=== PATIENT | male | born 1955 | race Caucasian/White ===

== ENCOUNTER 2024-06-12 16:06 | Observation (INO) ==
[2024-06-12 19:11] LABS: BASOPHILS % (AUTO) 0.5 % (0.2-1.0); EOSINOPHILS % (AUTO) 0.2 % (0.9-2.9); HEMATOCRIT 41.9 % (42.0-54.0); HEMOGLOBIN 14.6 g/dL (13.5-18.0); LYMPHOCYTES # (AUTO) 1.1 X10^3/uL (1.3-2.9); LYMPHOCYTES % (AUTO) 12.7 % (21.0-51.0); MEAN CORPUSCULAR HEMOGLOBIN 32.5 pg (27.0-34.0); MEAN CORPUSCULAR HGB CONC 34.9 g/dL (33.0-35.0); MEAN CORPUSCULAR VOLUME 93.3 fL (80.0-100.0); MEAN PLATELET VOLUME 9.3 fL (7.4-11.0); MONOCYTES # (AUTO) 0.8 x10^3/uL (0.3-0.8); NEUTROPHILS # (AUTO) 6.4 x10^3/uL (2.2-4.8); NEUTROPHILS % (AUTO) 76.6 % (42.0-75.0); PLATELET COUNT 174 X10^3/uL (150.0-450.0); RED BLOOD COUNT 4.49 X10^6/uL (4.7-6.0); WHITE BLOOD COUNT 8.3 X10^3/uL (3.6-10.0)
[2024-06-12 19:14] LABS: BLOOD UREA NITROGEN 10 mg/dL (7-18); CALCIUM 9.3 mg/dL (8.5-10.1); CARBON DIOXIDE 26.5 mmol/L (21-32); CHLORIDE 101 mmol/L (98-107); CREATININE 1.09 mg/dL (0.70-1.30); GLUCOSE 99 mg/dL (65-99); POTASSIUM 4.4 mmol/L (3.5-5.1); SODIUM 139 mmol/L (136-145); eGFR NON BLACK RACES > 60 (>60)
[2024-06-12] MEDS: LR 1,000 ML IV 1,000 ML IV SCH (19:40)
[2024-06-12] MEDS: SINGULAIR TAB 10 MG PO SCH (21:06)
[2024-06-12] MEDS: CRESTOR TAB 10 MG PO SCH (21:07)
[2024-06-12] MEDS: AMBIEN PO PRN (21:07)
[2024-06-12] MEDS: DILAUDID INJ IVP PRN (21:09)
--- NOTE | 2024-06-12 23:11 | CT ---
EXAM: CTA AORTA WITH RUNOFF HISTORY: acutely ischemic right foot; COMPARISON: January 19, 2024 TECHNIQUE: Axial CT images of the abdomen, pelvis and lower extremities were obtained prior to and after the ad ministration of 150 mL Omnipaque 350 IV contrast during the arterial phase. Images were reformatted w ith a 3D angiographic technique for further evaluation. Radiation dose: 918.52 mGy-cm total DLP FINDINGS: Aorta: Atherosclerotic changes with fusiform infrarenal abdominal aortic ectasia measuring up to 2.6 x 2.4 cm. No clinically significant stenosis or occlusion. Mesenteric arteries/Celiac trunk: No clinically significant stenosis, occlusion or aneurysm. Renal arteries: Atherosclerotic changes. No clinically significant stenosis, occlusion or aneurysm. Right iliac arteries: Atherosclerotic changes. No clinically significant stenosis, occlusion or aneur ysm. Left iliac arteries: Atherosclerotic changes. No clinically significant stenosis, occlusion or aneury sm. Right femoral arteries/popliteal artery: Atherosclerotic changes. Stent in place in the right superfi cial femoral artery with age indeterminate occlusion throughout the entire course of the stent. Prof unda femoral artery is widely patent. Left femoral arteries/popliteal artery: Atherosclerotic changes. No clinically significant stenosis, occlusion or aneurysm. Stent in the mid left superficial femoral artery. Right infrapopliteal arteries: Atherosclerotic changes. Reconstitution of flow in of the inferior rig ht popliteal artery. Scant flow in the right posterior tibial artery. Occlusion in the mid right an terior tibial artery. Left infrapopliteal arteries: Atherosclerotic changes. No occlusion or aneurysm. 3 vessel runoff. Lung bases are clear. No acute osseous abnormality. Mild multilevel degenerative disc and joint changes. Stomach and proximal small bowel appear normal. Solid visceral organs of the upper abdomen are unremarkable. Gallbladder appears normal. No biliary dilatation. Homogeneous enhancement of the kidneys without hydronephrosis or hydroureter. No urinary calculus identified. Urinary bladder is unremarkable. Colonic diverticulosis without diverticulitis. Otherwise, unremarkable appearance of the small and large bowel. No evidence of acute appendicitis. Reproductive structures are unremarkable. No pneumoperitoneum. No free intra-abdominal fluid. No adenopathy. IMPRESSION: Stent in place in the right superficial femoral artery with age indeterminate occlusion throughout th e entire course of the stent. Profunda femoral artery is widely patent.Reconstitution flow in of the inferior right popliteal artery. Scant flow in the right posterior tibial artery. Occlusion in the mid right anterior tibial artery. Right peroneal artery is widely patent. Fusiform ectasia of the infrarenal abdominal aorta measuring up to 2.6 x 2.4 cm in diameter. Colonic diverticulosis without diverticulitis. THIS IS AN ELECTRONICALLY VERIFIED FINAL REPORT 06/12/2024 11:07 PM - Electronically signed by Renny Jenkins MD
[2024-06-13] MEDS: LOVENOX INJ 60 MG SYR SC SCH (01:25)
[2024-06-13] MEDS ORDERED: HIBICLENS WASH ONE (05:27)
[2024-06-13] MEDS: NOZIN NASAL SANITIZER TP ONE (06:30)
[2024-06-13] MEDS: HIBICLENS WASH EXT ONE (06:30)
[2024-06-13] MEDS ORDERED: COZAAR PO SCH (09:00)
[2024-06-13] MEDS: ASPIRIN EC 81 MG PO SCH (13:51)
[2024-06-13] MEDS: PROTONIX TAB 40 MG PO SCH (13:51)
--- NOTE | 2024-06-13 17:23 | DR.CONSULT ---
CONSULT Consultation for Day of: Date: 06/13/24 Chief Complaint Chief Complaint: Right Lower Extremity Blockage Allergies Allergies Allergy/AdvReac Type Severity Reaction Status Date / Time No Known Allergies Allergy Verified 08/31/22 08:51 History of Present Illness History of Present Illness: Patient previously underwent ATFL and CFL repair by Dr. Groves. Had excruciating pain in the right lower extremity. Had early follow- up had coldness to the right leg. Patient referred to [facility] for critical limb ischemia. Sd admitted. CTA showed blockage. Preparing for OR today. Social History Does patient currently use any type of tobacco product: No Type of Tobacco Use: Cigarettes Does any household member use tobacco: No Alcohol Use: None Drug Use: None Medications Home Medications: No Known Allergies Allergy (Verified 08/31/22 08:51) CONTINUE taking the following medications hydrocodone 5 mg-acetaminophen 325 mg tablet 1 tab PO Q4H PRN 06/12/24 [History] ondansetron HCl 8 mg tablet 8 mg PO Q8H PRN 06/12/24 [History] rivaroxaban 2.5 mg tablet (Xarelto) 2.5 mg PO QDAY 06/12/24 [History] Review of Systems Musculoskeletal: Leg Pain and Foot Pain Physical Exam Vital Signs: Vital Signs Temperature 97.7 F Temperature 97.8 F Pulse Rate [Right] 82 Pulse Rate [Right] 71 Respiratory Rate 18 Respiratory Rate 18 Respiratory Rate 18 Respiratory Rate 18 Blood Pressure [Right Arm] 172/79 Blood Pressure [Right Arm] 139/65 O2 Sat by Pulse Oximetry 99 O2 Sat by Pulse Oximetry 99 Oriented: Normal, Time, Person and Place Skin: Other (Cold to to the touch of the right foot. CFT is intact to digits but delayed. Purple color change appear to digits. Sutures are in place to right foot incisions from previous surgery. ) Musculoskeletal: Tender (Tender along entire right foot and ankle. ) Plan (1) Ischemia of right lower extremity: Status: Acute Plan: - Would like patient to be NWB to RLE. - Sd to perform surgery today. - Will follow-up with patient tomorrow. - Keep surgical incisions clean.
[2024-06-14] MEDS: OMNIPAQUE 350 mg/mL 100 mL BTL 100 ML ONE (07:50)
[2024-06-14] MEDS: NS 100 ML IV 100 ML ONE (07:50)
[2024-06-14] MEDS: OMNIPAQUE 350 mg/mL 50 mL BTL 50 ML ONE (07:51)
[2024-06-14] MEDS: COZAAR PO SCH (09:05)
--- NOTE | 2024-06-14 11:15 | NOTE.SOAP ---
Soap Note Note for Day of Date of Exam: 06/13/24 Subjective Data Subjective Data: See H& P .Patient with ischemia right leg and CTA documenting occluded right SFA stent . Unfortunately the OR day went long and he was cancelled . Am in office Wed. Plan arterial intercvention right leg Objective Data Temperature: 98.2 F Pulse Rate: 86 Respiratory Rate: 20 Blood Pressure: 131/60 O2 Sat by Pulse Oximetry: 95 Objective Data: cool right leg, still able to move toes , no doppler signal right ankle Assessment Assessment: critical ischemia right leg , Plan Plan: Schedule right leg arterial intervention first thing in the AM.
--- NOTE | 2024-06-14 12:41 | DR.H&P ---
H&P History & Physical for Day of: H&P Date: 06/13/24 Chief Complaint Chief Complaint: rest pain right leg History of Present Illness History of Present Illness: 68 year old male with significant bilateral lower extremity arterial problems who has had bilateral lower extremity arterial intervention. Most recently has had doppler study in March of this year showing normal flow. however he presented with follow up in my office on 06/12 after a surgical procedure right foot by Dr. Groevs of the right foot and now has a cool right foot. P atient admitted for evaluation of this. I can palpate no distal pulses in the right foot as I could before. Also history of carotid art4ry disease in the past treated with CEA He is a former smoker. Past Medical History Past Medical History: Dyslipidemia, GERD and Hypertension Additional Medical History: history of left carotid artery stenosis Past Surgical History Surgical History: Other (left CEA, colonscopy) Family History Family Medical History: Cancer and Coronary Artery Disease Social History Does patient currently use any type of tobacco product: No Type of Tobacco Use: Cigarettes How many years tobacco product used: 50 Does any household member use tobacco: No Alcohol Use: None Drug Use: None Medications Home Medications: Home Medications Medication Instructions Recorded Confirmed Type losartan 25 mg tablet 25 mg PO QDAY 08/31/22 06/12/24 History montelukast 10 mg tablet 10 mg PO QDAY 08/31/22 06/12/24 History pantoprazole 40 mg tablet,delayed 40 mg PO QDAY 08/31/22 06/12/24 History release rosuvastatin 10 mg tablet 10 mg PO QDAY 08/31/22 06/12/24 History hydrocodone 5 mg-acetaminophen 325 1 tab PO Q4H PRN 06/12/24 06/12/24 History mg tablet ondansetron HCl 8 mg tablet 8 mg PO Q8H PRN 06/12/24 06/12/24 History rivaroxaban 2.5 mg tablet (Xarelto) 2.5 mg PO QDAY 06/12/24 06/12/24 History Allergies Allergies Allergy/AdvReac Type Severity Reaction Status Date / Time No Known Allergies Allergy Verified 08/31/22 08:51 Labs 06/12/24 19:00 06/12/24 19:00 Labs: Laboratory WBC 8.3 X10^3/uL (3.6-10.0) 06/12/24 19:00 RBC 4.49 X10^6/uL (4.7-6.0) L 06/12/24 19:00 Hgb 14.6 g/dL (13.5-18.0) 06/12/24 19:00 Hct 41.9 % (42.0-54.0) L 06/12/24 19:00 MCV 93.3 fL (80.0-100.0) 06/12/24 19:00 MCH 32.5 pg (27.0-34.0) 06/12/24 19:00 MCHC 34.9 g/dL (33.0-35.0) 06/12/24 19:00 RDW 13.0 % (11.6-16.5) 06/12/24 19:00 Plt Count 174 X10^3/uL (150.0-450.0) 06/12/24 19:00 MPV 9.3 fL (7.4-11.0) 06/12/24 19:00 Neut % (Auto) 76.6 % (42.0-75.0) H 06/12/24 19:00 Lymph % (Auto) 12.7 % (21.0-51.0) L 06/12/24 19:00 [place] % (Auto) 10.0 % (0.0-13.0) 06/12/24 19:00 Eos % (Auto) 0.2 % (0.9-2.9) L 06/12/24 19:00 Baso % (Auto) 0.5 % (0.2-1.0) 06/12/24 19:00 Neut # (Auto) 6.4 x10^3/uL (2.2-4.8) H 06/12/24 19:00 Lymph # (Auto) 1.1 X10^3/uL (1.3-2.9) L 06/12/24 19:00 [place] # (Auto) 0.8 x10^3/uL (0.3-0.8) 06/12/24 19:00 Eos # (Auto) 0.0 x10^3/uL (0.0-0.2) 06/12/24 19:00 Baso # (Auto) 0.0 X10^3/uL (0.0-0.1) 06/12/24 19:00 Absolute Nucleated RBC 0.1 /100WBC 06/12/24 19:00 Sodium 139 mmol/L (136-145) 06/12/24 19:00 Corrected Sodium TNP 06/12/24 19:00 Potassium 4.4 mmol/L (3.5-5.1) 06/12/24 19:00 Chloride 101 mmol/L (98-107) 06/12/24 19:00 Carbon Dioxide 26.5 mmol/L (21-32) 06/12/24 19:00 BUN 10 mg/dL (7-18) 06/12/24 19:00 Creatinine 1.09 mg/dL (0.70-1.30) 06/12/24 19:00 Est GFR (MDRD) Af Amer > 60 (>60) 06/12/24 19:00 Est GFR (MDRD) Non-Af > 60 (>60) 06/12/24 19:00 Glucose 99 mg/dL (65-99) 06/12/24 19:00 Calcium 9.3 mg/dL (8.5-10.1) 06/12/24 19:00 Review of Systems Constitutional: See HPI Eyes: No Symptoms Reported ENT: No Symptoms Reported Respiratory: No Symptoms Reported Cardiovascular: See HPI Gastrointestinal: No Symptoms Reported Genitourinary: No Symptoms Reported Musculoskeletal: No Symptoms Reported, Leg Pain and Foot Pain Skin: See HPI (surgery by Dr. Groves right foot ) Neurological: No Symptoms Reported Physical Exam Vital Signs: Vital Signs Temperature 98.2 F Temperature 97.7 F Pulse Rate [Right] 86 Pulse Rate [Right] 82 Respiratory Rate 18 Respiratory Rate 20 Respiratory Rate 18 Blood Pressure [Left Arm] 131/60 Blood Pressure [Right Arm] 172/79 O2 Sat by Pulse Oximetry 95 O2 Sat by Pulse Oximetry 99 Oriented: Normal, Time, Person and Place Eyes: Normal Ear: Normal Nose: Normal Throat: Normal Respiratory: Clear Throughout Cardiovascular: Normal and Other (Pulses both femoral arteries palpable , Absent dopplere signals right foot, right foot cool to touch, left fott with good doppler signals left ankle ) : Normal Auscultation: Bowel Sounds: Normal Palpation: Normal Tenderness: Normal Skin: Normal Musculoskeletal: Normal Psychiatric: Normal Mood Description: Anxious (in pain) Affect: Normal Speech Pattern: Clear and Appropriate Assessment/Plan (1) Ischemia of right lower extremity: Status: Acute Plan: admit, SQ Lovenox , CTA of aorta with runoff. (2) Essential (primary) hypertension: Status: Acute Plan: home meds (3) Gastro-esophageal reflux disease without esophagitis: Status: Acute Plan: ome meds
--- NOTE | 2024-06-14 22:52 | NOTE.SOAP ---
Soap Note Note for Day of Date of Exam: 06/14/24 Subjective Data Subjective Data: see previous notes , For aortogram , artetriogram right leg with possible atherectomy, possible angioiplasty of occluded right SFA stent . Main runoff is the right peroneal artery Objective Data Temperature: 98.3 F Pulse Rate: 72 Respiratory Rate: 20 Blood Pressure: 138/66 O2 Sat by Pulse Oximetry: 97 Objective Data: Cool right leg with no palapble pulses distally Assessment Assessment: Critical ischemia right leg , occluded right SFA stent. Plan arterial intervention right leg tomorrow. Plan Plan: as above
[2024-06-15] MEDS: LR 1,000 ML IV 1,000 ML IV ONE (07:20)
[2024-06-15] MEDS: NS 100 ML IV 100 ML ONE (07:44)
[2024-06-15] MEDS: ANCEF VIAL 1 GRAM ONE (07:44)
[2024-06-15] MEDS: XYLOCAINE 2 % (PLAIN) ONE (07:51)
[2024-06-15] MEDS: KETAMINE HCL ONE (07:51)
[2024-06-15] MEDS: PEPCID 20 MG VIAL ONE (07:51)
[2024-06-15] MEDS: DIPRIVAN VIAL 20 ML ONE ×2 (07:51→09:14)
[2024-06-15] MEDS: FENTANYL VIAL INJ 100 mcg ONE (07:51)
[2024-06-15] MEDS: ZOFRAN INJ 4 MG VIAL ONE (07:51)
[2024-06-15] MEDS: PRECEDEX INJ VIAL ONE (07:51)
[2024-06-15] MEDS: VERSED ONE (07:51)
[2024-06-15] MEDS: REGLAN INJ 10 MG VIAL ONE (07:51)
[2024-06-15] MEDS: OFIRMEV IV 1000 MG VIAL 1,000 MG/100 ML VIAL IV ONE (08:04)
[2024-06-15] MEDS: VISIPAQUE 50 ML ONE (08:14)
[2024-06-15] MEDS: MARCAINE 0.5% ONE (08:14)
[2024-06-15] MEDS: VISIPAQUE 100 ML ONE (08:14)
[2024-06-15] MEDS: HEPARIN SODIUM IN D5W 75,000 UNITS/1,500 ML BAG ONE (08:14)
[2024-06-15] MEDS: HEPARIN SODIUM INJ 5000 UNITS ONE (08:16)
[2024-06-15] MEDS: HEPARIN SODIUM IN D5W 25,000 UNITS/500 ML BAG ONE (08:42)
[2024-06-15] MEDS: NITROGLYCERIN IV PREMIX 50 MG 50 MG/250 ML BAG ONE (09:35)
--- NOTE | 2024-06-15 09:42 | OR.IMMED ---
IMMEDIATE POST-OP NOTE Immediate Post-Op Note Date of surgery/procedure: 06/15/24 Pre-Op Diagnosis: criticalm ischemia right leg, occluded right SFA stents Post-Op Diagnosis: same, see findings Procedure: diagnostic aortogram, arteriogram right leg, Angiojet thrombectomy of the entire right superficial femoral artery stents and balloon dilatation of the stents , angioplasty of the right anterior tibial artery, drug coated with balloon angioplasty of the popliteal artery below the knee. Description of Procedure: dictated Surgeon/[employer] [id number]: Sd Findings: completely occluded right superficial femoral artery stents, stenosis of [place] popliteal arteries below the knee, diffuse disease of the distal right anterior tibial artery, patent peroneal artery, filling of the posterior tibial artery at the end of the case through the peroneal artery Estimated Blood Loss: 100cc Complications: none Progress Notes: to floor, begin diet , begin Xarelto and aspirin, home later today
[2024-06-15] MEDS: XARELTO PO SCH (10:04)
[2024-06-15 16:04] VITALS: BP 165/84; PULSE 78; TEMP 97.7; O2SAT 96
[2024-06-15 16:44] VITALS: RESP 16
[2024-06-15] MEDS ORDERED: XARELTO PO SCH (21:00)
--- NOTE | 2024-06-19 11:29 | W.DIS.FURT ---
Summary of Discharge Discharge Summary of Date Date of Exam: 06/15/24 Admission Date Date of Admission: 06/12/24 Admission Diagnosis Hospital Course: 68 year old male with history of bilateral significant peripheral vascular disease who has had bilateral lower extremity arterial interventions in the past. He presented for a routine follow-up after having a procedure by podiatry in the office on the day of admission June 12 and had a cool painful right leg. He was admitted and placed on therapeutic subcutaneous Lovenox . CT angiogram was consistent with occluded stents in the right superficial femoral artery. He was hydrated and maintained on the therapeutic Lovenox with plans to take him to the operating Suite on 06/13 however it got too late in the day and we could not get it done that day therefore, it was moved to today, June 15. Today underwent Angiojey thrombectomy of the occluded right shA stents , angioplasty of the right anterior tibial artery with runoff being the anterior tibial and peroneal arteries with reconstitution of the posterior tibial through the peronel artery as well as a drug balloon angioplasty with atherectomy of the right tibial peroneal trunk. He has done well with excellent warm right foot and excellent bi phasic signal in the anterior tibial artery at the ankle. He will be discharged home on his usual medications plus Percocet, 5 milligram tablets 1, every 6 hours per in pain, he has a follow up to see me on June 29. Vital Signs: Vital Signs (72 hours) 06/14/24 22:51 06/14/24 11:15 06/12/24 18:10 Temperature 98.3 F 98.2 F Pulse Rate 72 86 Pulse Rate [Brachial] Pulse Rate [Left] Pulse Rate [Right] Respiratory Rate 20 20 Blood Pressure 138/66 131/60 Blood Pressure [Left Arm] Blood Pressure [Right Arm] O2 Sat by Pulse Oximetry 97 95 Oxygen Delivery Method Room Air 06/12/24 18:12 06/12/24 17:53 06/12/24 19:00 Temperature 97.9 F Pulse Rate Pulse Rate [Brachial] Pulse Rate [Left] Pulse Rate [Right] 74 Respiratory Rate 18 Blood Pressure Blood Pressure [Left Arm] Blood Pressure [Right Arm] 162/70 O2 Sat by Pulse Oximetry 100 Oxygen Delivery Method Room Air Room Air Room Air 06/12/24 21:09 06/12/24 21:39 06/12/24 20:00 Temperature 98.4 F Pulse Rate Pulse Rate [Brachial] Pulse Rate [Left] Pulse Rate [Right] 90 Respiratory Rate 22 18 19 Blood Pressure Blood Pressure [Left Arm] Blood Pressure [Right Arm] 181/79 O2 Sat by Pulse Oximetry 97 Oxygen Delivery Method Room Air 06/13/24 00:00 06/13/24 04:00 06/13/24 07:32 Temperature 98.3 F 98.0 F Pulse Rate Pulse Rate [Brachial] Pulse Rate [Left] Pulse Rate [Right] 85 71 Respiratory Rate 16 20 20 Blood Pressure Blood Pressure [Left Arm] Blood Pressure [Right Arm] 161/91 186/77 O2 Sat by Pulse Oximetry 95 98 Oxygen Delivery Method Room Air Room Air 06/13/24 08:00 06/13/24 08:02 06/13/24 07:00 Temperature 97.5 F L Pulse Rate Pulse Rate [Brachial] Pulse Rate [Left] Pulse Rate [Right] 78 Respiratory Rate 20 20 Blood Pressure Blood Pressure [Left Arm] Blood Pressure [Right Arm] 172/81 O2 Sat by Pulse Oximetry 97 Oxygen Delivery Method Room Air Room Air 06/13/24 12:00 06/13/24 12:35 06/13/24 13:05 Temperature 97.8 F Pulse Rate Pulse Rate [Brachial] Pulse Rate [Left] Pulse Rate [Right] 71 Respiratory Rate 18 18 18 Blood Pressure Blood Pressure [Left Arm] Blood Pressure [Right Arm] 139/65 O2 Sat by Pulse Oximetry 99 Oxygen Delivery Method Room Air 06/13/24 16:00 06/13/24 20:00 06/13/24 19:00 Temperature 97.7 F 98.2 F Pulse Rate Pulse Rate [Brachial] Pulse Rate [Left] Pulse Rate [Right] 82 86 Respiratory Rate 18 20 Blood Pressure Blood Pressure [Left Arm] 131/60 Blood Pressure [Right Arm] 172/79 O2 Sat by Pulse Oximetry 99 95 Oxygen Delivery Method Room Air Room Air Room Air 06/13/24 20:05 06/13/24 22:15 06/14/24 00:00 Temperature 98.5 F Pulse Rate Pulse Rate [Brachial] Pulse Rate [Left] Pulse Rate [Right] 79 Respiratory Rate 18 20 18 Blood Pressure Blood Pressure [Left Arm] 171/75 Blood Pressure [Right Arm] O2 Sat by Pulse Oximetry 95 Oxygen Delivery Method Room Air 06/14/24 04:00 06/13/24 22:45 06/13/24 20:35 Temperature 98.4 F Pulse Rate Pulse Rate [Brachial] Pulse Rate [Left] 68 Pulse Rate [Right] Respiratory Rate 21 18 22 Blood Pressure Blood Pressure [Left Arm] 173/79 Blood Pressure [Right Arm] O2 Sat by Pulse Oximetry 96 Oxygen Delivery Method Room Air 06/14/24 04:57 06/14/24 09:06 06/14/24 10:19 Temperature Pulse Rate Pulse Rate [Brachial] Pulse Rate [Left] Pulse Rate [Right] Respiratory Rate 18 18 Blood Pressure Blood Pressure [Left Arm] Blood Pressure [Right Arm] O2 Sat by Pulse Oximetry Oxygen Delivery Method Room Air 06/14/24 08:00 06/14/24 09:36 06/14/24 12:18 Temperature 97.5 F L Pulse Rate Pulse Rate [Brachial] Pulse Rate [Left] 78 Pulse Rate [Right] Respiratory Rate 19 20 20 Blood Pressure Blood Pressure [Left Arm] 132/60 Blood Pressure [Right Arm] O2 Sat by Pulse Oximetry 96 Oxygen Delivery Method Room Air 06/14/24 14:40 06/14/24 17:48 06/14/24 12:00 Temperature 97.7 F Pulse Rate Pulse Rate [Brachial] 80 Pulse Rate [Left] Pulse Rate [Right] Respiratory Rate 22 18 18 Blood Pressure Blood Pressure [Left Arm] 137/69 Blood Pressure [Right Arm] O2 Sat by Pulse Oximetry 97 Oxygen Delivery Method Room Air 06/14/24 12:48 06/14/24 15:10 06/14/24 16:00 Temperature 98.3 F Pulse Rate Pulse Rate [Brachial] 72 Pulse Rate [Left] Pulse Rate [Right] Respiratory Rate 22 18 20 Blood Pressure Blood Pressure [Left Arm] 138/66 Blood Pressure [Right Arm] O2 Sat by Pulse Oximetry 97 Oxygen Delivery Method Room Air 06/14/24 19:00 06/14/24 20:59 06/14/24 23:04 Temperature Pulse Rate Pulse Rate [Brachial] Pulse Rate [Left] Pulse Rate [Right] Respiratory Rate 18 20 Blood Pressure Blood Pressure [Left Arm] Blood Pressure [Right Arm] O2 Sat by Pulse Oximetry Oxygen Delivery Method Room Air 06/15/24 03:45 06/14/24 21:29 06/14/24 20:00 Temperature 99.4 F Pulse Rate Pulse Rate [Brachial] 75 Pulse Rate [Left] Pulse Rate [Right] Respiratory Rate 18 18 20 Blood Pressure Blood Pressure [Left Arm] 158/72 Blood Pressure [Right Arm] O2 Sat by Pulse Oximetry 96 Oxygen Delivery Method Room Air 06/14/24 23:34 06/15/24 00:00 06/15/24 04:15 Temperature 97.9 F Pulse Rate Pulse Rate [Brachial] 71 Pulse Rate [Left] Pulse Rate [Right] Respiratory Rate 20 20 18 Blood Pressure Blood Pressure [Left Arm] 156/62 Blood Pressure [Right Arm] O2 Sat by Pulse Oximetry 98 Oxygen Delivery Method Room Air 06/15/24 07:15 06/15/24 07:00 06/15/24 10:49 Temperature 99.4 F Pulse Rate 77 Pulse Rate [Brachial] Pulse Rate [Left] Pulse Rate [Right] Respiratory Rate 19 18 Blood Pressure 192/92 Blood Pressure [Left Arm] Blood Pressure [Right Arm] O2 Sat by Pulse Oximetry 95 Oxygen Delivery Method Room Air 06/15/24 11:19 06/15/24 14:26 06/15/24 16:44 Temperature Pulse Rate Pulse Rate [Brachial] Pulse Rate [Left] Pulse Rate [Right] Respiratory Rate 20 20 16 Blood Pressure Blood Pressure [Left Arm] Blood Pressure [Right Arm] O2 Sat by Pulse Oximetry Oxygen Delivery Method 06/15/24 14:56 06/15/24 09:45 06/15/24 10:00 Temperature 98.0 F Pulse Rate Pulse Rate [Brachial] 51 L 50 L Pulse Rate [Left] Pulse Rate [Right] Respiratory Rate 18 18 16 Blood Pressure Blood Pressure [Left Arm] 103/57 137/67 Blood Pressure [Right Arm] O2 Sat by Pulse Oximetry 97 98 Oxygen Delivery Method Room Air Room Air 06/15/24 10:15 06/15/24 10:30 06/15/24 10:45 Temperature 98.0 F 97.9 F Pulse Rate Pulse Rate [Brachial] 53 L 56 L 59 L Pulse Rate [Left] Pulse Rate [Right] Respiratory Rate 16 16 18 Blood Pressure Blood Pressure [Left Arm] 161/77 159/82 174/81 Blood Pressure [Right Arm] O2 Sat by Pulse Oximetry 100 100 100 Oxygen Delivery Method Room Air Room Air Room Air 06/15/24 11:45 06/15/24 12:45 06/15/24 13:45 Temperature 97.8 F 97.7 F 97.8 F Pulse Rate Pulse Rate [Brachial] 69 75 57 L Pulse Rate [Left] Pulse Rate [Right] Respiratory Rate 18 18 18 Blood Pressure Blood Pressure [Left Arm] 170/77 170/71 182/82 Blood Pressure [Right Arm] O2 Sat by Pulse Oximetry 97 95 94 L Oxygen Delivery Method Room Air Room Air Room Air 06/15/24 14:45 Temperature 97.7 F Pulse Rate Pulse Rate [Brachial] 78 Pulse Rate [Left] Pulse Rate [Right] Respiratory Rate 18 Blood Pressure Blood Pressure [Left Arm] 165/84 Blood Pressure [Right Arm] O2 Sat by Pulse Oximetry 96 Oxygen Delivery Method Room Air Labs: Laboratory Last Values WBC 8.3 X10^3/uL (3.6-10.0) 06/12/24 19:00 RBC 4.49 X10^6/uL (4.7-6.0) L 06/12/24 19:00 Hgb 14.6 g/dL (13.5-18.0) 06/12/24 19:00 Hct 41.9 % (42.0-54.0) L 06/12/24 19:00 MCV 93.3 fL (80.0-100.0) 06/12/24 19:00 MCH 32.5 pg (27.0-34.0) 06/12/24 19:00 MCHC 34.9 g/dL (33.0-35.0) 06/12/24 19:00 RDW 13.0 % (11.6-16.5) 06/12/24 19:00 Plt Count 174 X10^3/uL (150.0-450.0) 06/12/24 19:00 MPV 9.3 fL (7.4-11.0) 06/12/24 19:00 Neut % (Auto) 76.6 % (42.0-75.0) H 06/12/24 19:00 Lymph % (Auto) 12.7 % (21.0-51.0) L 06/12/24 19:00 [place] % (Auto) 10.0 % (0.0-13.0) 06/12/24 19:00 Eos % (Auto) 0.2 % (0.9-2.9) L 06/12/24 19:00 Baso % (Auto) 0.5 % (0.2-1.0) 06/12/24 19:00 Neut # (Auto) 6.4 x10^3/uL (2.2-4.8) H 06/12/24 19:00 Lymph # (Auto) 1.1 X10^3/uL (1.3-2.9) L 06/12/24 19:00 [place] # (Auto) 0.8 x10^3/uL (0.3-0.8) 06/12/24 19:00 Eos # (Auto) 0.0 x10^3/uL (0.0-0.2) 06/12/24 19:00 Baso # (Auto) 0.0 X10^3/uL (0.0-0.1) 06/12/24 19:00 Absolute Nucleated RBC 0.1 /100WBC 06/12/24 19:00 Sodium 139 mmol/L (136-145) 06/12/24 19:00 Corrected Sodium TNP 06/12/24 19:00 Potassium 4.4 mmol/L (3.5-5.1) 06/12/24 19:00 Chloride 101 mmol/L (98-107) 06/12/24 19:00 Carbon Dioxide 26.5 mmol/L (21-32) 06/12/24 19:00 BUN 10 mg/dL (7-18) 06/12/24 19:00 Creatinine 1.09 mg/dL (0.70-1.30) 06/12/24 19:00 Est GFR (MDRD) Af Amer > 60 (>60) 06/12/24 19:00 Est GFR (MDRD) Non-Af > 60 (>60) 06/12/24 19:00 Glucose 99 mg/dL (65-99) 06/12/24 19:00 Calcium 9.3 mg/dL (8.5-10.1) 06/12/24 19:00 Reason For Visit: RIGHT LOWER EXT, CRITICAL ISHEMIA Discharge Date Discharge Date: 06/15/24 Discharge Diagnosis All Active Problems (Updated 06/14/24 @ 12:40 by Vishal Beaver) Gastro-esophageal reflux disease without esophagitis (Acute) Essential (primary) hypertension (Acute) Ischemia of right lower extremity (Acute) Plan of Treatment: Continue with present treatment and follow up plan. Pt is to keep follow up appointment as instructed and take medications as ordered. Discharge Medications Discharge Medications: No Known Allergies Allergy (Verified 08/31/22 08:51) CONTINUE taking the following medications hydrocodone 5 mg-acetaminophen 325 mg tablet 1 tab PO Q4H PRN 06/12/24 [History] ondansetron HCl 8 mg tablet 8 mg PO Q8H PRN 06/12/24 [History] rivaroxaban 2.5 mg tablet (Xarelto) 2.5 mg PO QDAY 06/12/24 [History] aspirin 81 mg po daily Percocet , 5 mg po q 6 hr PRN pain Discharge Disposition Assessment: see hospital course Discharge Plan Discharge Plan Hospital Course: 68 year old male with history of bilateral significant peripheral vascular disease who has had bilateral lower extremity arterial interventions in the past. He presented for a routine follow-up after having a procedure by podiatry in the office on the day of admission June 12 and had a cool painful right leg. He was admitted and placed on therapeutic subcutaneous Lovenox . CT angiogram was consistent with occluded stents in the right superficial femoral artery. He was hydrated and maintained on the therapeutic Lovenox with plans to take him to the operating Suite on 06/13 however it got too late in the day and we could not get it done that day therefore, it was moved to today, June 15. Today underwent Angiojey thrombectomy of the occluded right shA stents , angioplasty of the right anterior tibial artery with runoff being the anterior tibial and peroneal arteries with reconstitution of the posterior tibial through the peronel artery as well as a drug balloon angioplasty with atherectomy of the right tibial peroneal trunk. He has done well with excellent warm right foot and excellent bi phasic signal in the anterior tibial artery at the ankle. He will be discharged home on his usual medications plus Percocet, 5 milligram tablets 1, every 6 hours per in pain, he has a follow up to see me on June 29. Patient Disposition: HOME, SELF-CARE Condition: Stable Health Concerns: Post Hospitalization: new medications and changes needed to prevent readmission or further decline. Pt educated and given instructions on all concerns. Care Plan Goals: see hospital course Plan of Treatment: Continue with present treatment and follow up plan. Pt is to keep follow up appointment as instructed and take medications as ordered. Assessment: see hospital course Prescription drug monitoring program results: PDMP was not reviewed Prescriptions: New oxycodone-acetaminophen [Percocet] 5-325 mg tablet 1 tab PO Q6H MDD 4 PRNQty: 30 0RF oxycodone-acetaminophen [Percocet] 5-325 mg tablet 1 tab PO Q6H MDD 4 PRNQty: 30 0RF Continued pantoprazole 40 mg Tablet,Delayed Release (Dr/Ec) 40 mg PO QDAY losartan 25 mg Tablet 25 mg PO QDAY montelukast 10 mg Tablet 10 mg PO QDAY rosuvastatin 10 mg Tablet 10 mg PO QDAY hydrocodone-acetaminophen 5-325 mg tablet 1 tab PO Q4H PRN ondansetron HCl 8 mg tablet 8 mg PO Q8H PRN Xarelto 2.5 mg tablet 2.5 mg PO QDAY Orders to Discharge Patient Discharge Orders: Discharge (Routine); Ordered 06/15/24 Ordered By: Vishal Beaver Follow ups/Referrals Follow ups/Referrals: Vishal Beaver [Primary Care Provider] - 06/26/24 9:45 am Instructions Instructions: Bleeding Precautions When on Anticoagulant Therapy, Adult, Preventing Poor Blood Flow (Peripheral Vascular Disease), Poor Blood Flow (Peripheral Vascular Disease): What to Know, Endovascular Therapy for Peripheral Vascular Disease: What to Know After Stand Alone Forms: Excuse From Work or School, Post Hospital Follow Up Care
--- NOTE | 2024-06-21 16:38 | DR.OPNOTE ---
OP NOTE Pre-Op Diagnosis: thrombosis arteries right leg Post-Op Diagnosis: same Procedure Date Date Of Procedure: 06/15/24 Procedure: PROCEDURE: DIAGNOSTIC AORTOGRAM, DIAGNOSTIC ARTERIOGRAM RIGHT LEG , PERCUTANEOUS ANGIOJET THROMBECTOMY OF THROMBOSED RIGHT SUPERFICIAL FEMORAL ARTERY STENTS , ANGIOPLASTY OF RIGHT SUPERFICIAL FEMORAL ARTERY STENTS, DRUG COATED BALLOON ANGIOPLASTY LEFT POPLITEAL ARTERY AND ANGIOPLASTY OF THE RIGHT ANTERIOR TIBIAL ARTERY NARRATIVE : The patient was taken to the operative suite and placed in the supine position. The left groin and entire right leg were prepped and draped in sterile fashion. The patient was given intravenous sedation supervised by myself. Time out for the procedure obtained. Ultrasound used to identify the left femoral artery and the skin overlying it infiltrated with 0.5% Marcaine. Ultrasound then used to guide puncture of the left femoral artery and a 0.012 inch guide wire was placed. Incision made over the guide wire at the skin edge with a # 11 knife blade and a micro sheath placed over the guide wire into the left femoral artery The small guidewire exchanged for a 0.035 inch Advantage glide wire and the micro sheath exchanged for a 5 Fr vascular sheath. Patient given 5000 units of intravenous heparin. Omni catheter was placed over the guide wire into the aorta and diagnostic aortogram carried out with the power injector showing pqatetn aorta and iliac arteries . Omni catheter was used to steer the guide wire down the right common iliac artery to the distal right external iliac artery . Omni catheter was exchanged for a Jackson catheter and sequential arteriograms carried out of the right lower extremity showing thrombosis of the stents of the right superficial femoral artery , significant stenosis of the elem right popliteal artery diffuse disease of the right anterior tibial artery, patent right peroneal artery with retrograde filling of the right posterior tibial artery at the ankle . The 5 Fr sheath in the left groin then exchanged for a 7 Fr Catapult destination sheath which was parked in the rigth distal external iliac artery . Rubicoan catheter and the guide wire were used to traverse the arteries of the right leg ultimately ending in the right peroneal artery artery . This was selective catheterization. 0.035 inch wire removed and exchanged for a 0.014 inch wire. Over this wire we placed the Angiojet thrombectomy device and and performed thrombectomy of all the stents of the right superficail femoral artery . At this point we performed balloon dilatation of all of the right superficial femoral artery stents with a [place] 6mm x 200 mm angioplasty balloon . The wire was then re- directed down the right anterior tibial artery . This was the second selective catherization. Over the wire we placed a [place] 3 mmx 220 mm angioplasty balloon and inflated the entire right anterior tibial artery . At completion of this a follow up arteriogram showed all excellent results .All wires and devices removed. The 7 Fr sheath was pulled back into the aorta and a 0.035 inch wire placed. The destination sheath exchanged for an Angioseal device used to close the puncture of the left femoral artery. .Dressing applied to the left groin. The patient taken to same day surgery in good condition. Type of Anesthesia: Local (0.5% Marcaine ) Anesthesia Comment: plus MAC Findings: thrombosis of all right superficial femoral artery stents stenosis left elem popliteal artery, diffuse disease right anterior tibial artery , patetn right peroneal artery with retrograde filling od the right posterior tibial artery at the ankle . Disposition/Condition: Pt. tolerated procedure without difficulty. Extubated in the OR and taken to PACU in stable condition.
== END 2024-06-15 18:24 | disposition home or self-care (01) ==
LOC: MED/SURG
PROVIDERS: ADMIT Surgery; ATTEND Surgery
DX: I65.22 Occlusion and stenosis of left carotid artery; R26.89 Other abnormalities of gait and mobility; I25.10 Atherosclerotic heart disease of native coronary artery without angina pectoris; I73.89 Other specified peripheral vascular diseases; K21.9 Gastro-esophageal reflux disease without esophagitis; Z59.10 Inadequate housing, unspecified; I10 Essential (primary) hypertension; I70.221 Atherosclerosis of native arteries of extremities with rest pain, right leg; E78.5 Hyperlipidemia, unspecified